=== PATIENT | female | born 1970 | race Caucasian/White ===

== ENCOUNTER 2018-12-15 00:08 | Emergency (ER) | payer MEDICARE, MEDICAID ==
[~2018-12-15] VITALS: Ht 177.8 cm; Wt 140.9 kg
[~2018-12-15 00:08] MED LIST: DESV50TA PO; DEXL60CA3 PO; FENO145T38 PO; GABA-532 PO; HYDR-3686 PO; IBUP-814 PO; LABE100T5 PO; LEVE500T PO; LISI-604 PO; ONDA4TAB12 PO; SIMV20TA PO; SITA100T11 PO; TOP100T PO; TRAZ-219 PO; [UNRECOGNIZED DRUG - CODE] PO; [UNRECOGNIZED DRUG - CODE] PO
[2018-12-15] MEDS ORDERED: aspirin 81mg tab.chew PO ONE (00:40)
[2018-12-15 00:55] LABS: BASOPHILS # (AUTO) 0.1 X10'3 (0-0.2); BASOPHILS % (AUTO) 0.8 % (0-1); EOSINOPHILS # (AUTO) 0.3 X10'3 (0-0.9); EOSINOPHILS % (AUTO) 2.8 % (0-6); HEMATOCRIT 43.1 % (35.0-45.0); HEMOGLOBIN 14.6 g/dl (12.0-16.0); LYMPHOCYTES # (AUTO) 2.5 X10'3 (1.1-4.8); LYMPHOCYTES % (AUTO) 23.8 % (21-51); MEAN CORPUSCULAR HEMOGLOBIN 29.6 PG (27.0-31.0); MEAN CORPUSCULAR HGB CONC 33.7 g/dL (33.0-36.5); MEAN CORPUSCULAR VOLUME 87.8 FL (78-98); MEAN PLATELET VOLUME 8.5 FL (7.4-10.4); MONOCYTES # (AUTO) 0.5 X10'3 (0-0.9); MONOCYTES % (AUTO) 5.1 % (2-12); NEUTROPHILS # (AUTO) 7.1 X10'3 (1.8-7.7); NEUTROPHILS % (AUTO) 67.5 % (42-75); PLATELET COUNT 233 X10'3 (140-440); RED BLOOD COUNT 4.91 X10'6 (4.20-5.60); RED CELL DISTRIBUTION WIDTH 13.1 % (11.5-14.5); WHITE BLOOD COUNT 10.6 X10'3 (4.5-11.0)
[2018-12-15 01:11] LABS: ALANINE AMINOTRANSFERASE 10 U/L (12-78); ALBUMIN 3.2 G/DL (3.4-5.0); ALBUMIN/GLOBULIN RATIO 0.8 (1.1-1.5); ALKALINE PHOSPHATASE 54 IU/L (46-116); ANION GAP 9 (8-16); ASPARTATE AMINO TRANSFERASE 7 U/L (10-37); BILIRUBIN,TOTAL 0.3 MG/DL (0.1-1.0); BLOOD UREA NITROGEN 18 MG/DL (7-18); BUN/CREATININE RATIO 17.8 (6.6-38.0); CALCIUM 9.2 MG/DL (8.5-10.1); CHLORIDE 106 MMOL/L (99-107); CREATININE 1.01 MG/DL (0.40-0.90); GLUCOSE 195 MG/DL (70-104); POTASSIUM 3.6 MMOL/L (3.5-5.1); SODIUM 141 MMOL/L (135-145); eGFR 59 ML/MIN
[2018-12-15 01:17] LABS: MAGNESIUM 1.7 MG/DL (1.5-2.4)
[2018-12-15 03:52] VITALS: BP 111/49
== END 2018-12-15 03:54 | disposition home or self-care (01) ==
LOC: ER 00:09
DX: R07.89 Other chest pain (principal); E78.00 Pure hypercholesterolemia, unspecified; I10 Essential (primary) hypertension; G47.30 Sleep apnea, unspecified; K21.9 Gastro-esophageal reflux disease without esophagitis; E11.9 Type 2 diabetes mellitus without complications; G89.29 Other chronic pain; F41.9 Anxiety disorder, unspecified; F31.9 Bipolar disorder, unspecified; M79.7 Fibromyalgia; F12.90 Cannabis use, unspecified, uncomplicated; Z90.49 Acquired absence of other specified parts of digestive tract; Z98.890 Other specified postprocedural states; Z88.8 Allergy status to other drugs, medicaments and biological substances; Z79.899 Other long term (current) drug therapy
CPT/HCPCS: 36415; 71045; 80053; 82948; 83735; 83880; 84484; 85025; 93005; 99284